=== PATIENT | female | born 1965 | race Caucasian/White ===

== ENCOUNTER → 2016-05-14 | Outpatient (CLI) | payer BC ==
[~2016-05-14] MED LIST: CIPRODEX 0.3%-7.5 M1 OT; MEDROL DOSEPAK4 MG PO; NKHM
== END | disposition home or self-care (01) ==
LOC: RAD 10:48
DX: M54.31 Sciatica, right side (principal); M54.5 Low back pain

== ENCOUNTER 2016-09-14 19:15 | Emergency (ER) | payer BC ==
[~2016-09-14] VITALS: Ht 162.5 cm; Wt 53.1 kg
[2016-09-14] MEDS ORDERED: CIPRODEX 0.3%-7.5 ML OT (19:51)
== END 2016-09-14 19:59 | disposition home or self-care (01) ==
LOC: ED 19:15
DX: H66.91 Otitis media, unspecified, right ear (principal)

== ENCOUNTER → 2016-10-18 | Outpatient (CLI) | payer BC ==
[~2016-10-18] MED LIST changes: +CIPRODEX 0.3%-7.5 ML OT
== END | disposition home or self-care (01) ==
LOC: CT 08:21
DX: D44.7 Neoplasm of uncertain behavior of aortic body and other paraganglia (principal); D18.09 Hemangioma of other sites; H71.91 Unspecified cholesteatoma, right ear; H92.01 Otalgia, right ear

== ENCOUNTER → 2016-11-13 | Day surgery (SDC) | payer BC ==
[~2016-11-13] VITALS: Ht 162.5 cm; Wt 56.7 kg
[~2016-11-13] MED LIST changes: +CILOXAN 5 ML5 M1 OT
--- NOTE | ~2016-11-13 | O ---
[place], [place] OPERATIVE NOTE NAME: TANYA OWENS [facility] #: [id number] UNIT #: [id number] ROOM: DOCTOR: CATALINA MACIEL MD BIRTHDATE: [birth year] DOS: 11/13/2016 PREOPERATIVE DIAGNOSIS: Retained ventilation tubes. POSTOPERATIVE DIAGNOSIS: Retained ventilation tubes. OPERATION: Removal of retained ventilation tube, right ear. SURGEON: Dr. Maciel. ANESTHESIA: General. INDICATIONS: The patient is being taken to the operating room for removal of retained ventilation tubes. OPERATIVE FINDINGS AND PROCEDURE: Following induction of general anesthesia, the patient was positioned supine on the OR table and draped in a standard fashion for ear surgery. The surgical microscope was brought into the operative field. The ears were examined, and retained synthetic ventilation tube was removed from the ear canal. Topical ciprofloxacin drops were then instilled in the ears. The patient tolerated the procedure well, was awakened and transported to PACU in satisfactory condition. CATALINA MACIEL MD CM:OPRECORD:OPERATIVE NOTE [id number] CATALINA MACIEL MD 11/13/16 0954 interface
[2016-11-13 08:50] VITALS: BP 157/92
[2016-11-13 09:10] VITALS: BP 129/81
[2016-11-13 09:24] VITALS: BP 119/76
[2016-11-13 09:40] VITALS: BP 124/81
== END | disposition home or self-care (01) ==
LOC: SDC 11-09 15:30
DX: H74.8X1 Other specified disorders of right middle ear and mastoid (principal); F17.210 Nicotine dependence, cigarettes, uncomplicated; I10 Essential (primary) hypertension; F41.9 Anxiety disorder, unspecified; M54.30 Sciatica, unspecified side; Z98.890 Other specified postprocedural states

== ENCOUNTER → 2017-10-14 | Outpatient (CLI) | payer BC ==
[~2017-10-14] MED LIST changes: +LISINOPRIL5 MG PO; +SINGULAIR10 M1 PO; +VITAMIN B12 PO; +VITAMIN D PO; +ZYRTEC10 MG PO
== END | disposition home or self-care (01) ==
LOC: RAD 10-11 13:00
DX: Z13.820 Encounter for screening for osteoporosis (principal); N95.9 Unspecified menopausal and perimenopausal disorder; Z72.0 Tobacco use

== ENCOUNTER → 2017-10-25 | Day surgery (SDC) | payer BC ==
[~2017-10-25] VITALS: Ht 162.5 cm; Wt 49.0 kg
--- NOTE | ~2017-10-25 | O ---
[place], [place] OPERATIVE NOTE NAME: TANYA OWENS UNIT #: [id number] ROOM: DOCTOR: EDDY COLON MD BIRTHDATE: [birth year] DOS: 10/25/2017 A 52-year-old patient who presented with chief complaint of colonic screening. ALLERGIES: No known medication. FAMILY HISTORY: Noncontributory. PAST SURGICAL HISTORY: Ear tube laparoscopy. PAST MEDICAL HISTORY: Hypertension and allergic rhinitis. SOCIAL HISTORY: Smoker, nonalcohol consumer. PROCEDURE: Today's procedure part of investigation is colonoscopy plus polypectomy. PREMEDICATION: Propofol. SCOPE: Olympus folding colonoscope 10L video. REPORT: After putting the patient in left lateral position and application of lubricant to the scope, the scope was introduced; thereafter, under direct visualization, advanced through the length of tortuous colon, particularly tortuosity of sigmoid level. Therefore, there is an advancement of the scope with these. However, this is appropriate, taking care of and sessile polypoid lesion and hepatic flexure with piecemeal polypectomy was removed. Base of cecum photographed, ileocecal valve was defined. The patient extubated, tolerated procedure well. IMPRESSION: Tortuous colon. Otherwise sessile polyp at hepatic flexure. PLAN AND DISCUSSION: High fiber diet. ACTIVITY: Ad indy. FOLLOWUP: Routinely with you in office, p.r.n. visit with us in GI Clinic. Thank you again for your kind referral. [place], [place] OPERATIVE NOTE NAME: TANYA OWENS UNIT #: [id number] ROOM: DOCTOR: EDDY COLON MD BIRTHDATE: [birth year] EDDY COLON MD CM:OPRECORD:OPERATIVE NOTE [id number] EDDY COLON MD 10/25/17 1540 interface
[2017-10-25 13:10] VITALS: BP 128/87
[2017-10-25 14:58] VITALS: BP 111/69
[2017-10-25 15:13] VITALS: BP 110/68
[2017-10-25 15:28] VITALS: BP 126/80
== END | disposition home or self-care (01) ==
LOC: SDC 10-22 14:00
DX: Z12.11 Encounter for screening for malignant neoplasm of colon (principal); D12.3 Benign neoplasm of transverse colon; K63.89 Other specified diseases of intestine; I10 Essential (primary) hypertension; F17.210 Nicotine dependence, cigarettes, uncomplicated; F41.9 Anxiety disorder, unspecified; F32.9 Major depressive disorder, single episode, unspecified; Z79.899 Other long term (current) drug therapy; Z98.890 Other specified postprocedural states

== ENCOUNTER → 2018-01-20 | Outpatient (CLI) | payer BC | END | disposition home or self-care (01) | LOC: US 09:36 | DX: R74.8 Abnormal levels of other serum enzymes (principal) ==

== ENCOUNTER → 2018-04-28 | Outpatient (CLI) | payer BC | END | disposition home or self-care (01) | LOC: MRI 12:58 | DX: M54.31 Sciatica, right side (principal); L81.4 Other melanin hyperpigmentation ==

== ENCOUNTER → 2018-05-08 | Outpatient (CLI) | payer BC | END | disposition home or self-care (01) | LOC: MRI 13:41 | DX: R93.89 Abnormal findings on diagnostic imaging of other specified body structures (principal); L81.4 Other melanin hyperpigmentation; R10.31 Right lower quadrant pain; I10 Essential (primary) hypertension ==

== ENCOUNTER → 2023-08-27 | Outpatient (CLI) | payer BC | END | disposition home or self-care (01) | LOC: RAD 12:56 | PROVIDERS: ATTEND Chiropractor | DX: M47.817 Spondylosis without myelopathy or radiculopathy, lumbosacral region (principal); M48.061 Spinal stenosis, lumbar region without neurogenic claudication; M54.50 Low back pain, unspecified; I70.0 Atherosclerosis of aorta ==